=== PATIENT | male | born 1995 | race African-American/Black ===

== ENCOUNTER 2021-07-18 12:09 | Emergency (ER) | payer SELFPAY ==
[~2021-07-18] VITALS: Ht 175.3 cm; Wt 80.0 kg
[2021-07-18] MEDS ORDERED: ONDANSETRON HCL 4MG/2ML INJ IV STA (12:38)
[2021-07-18] MEDS ORDERED: MAGNESIUM/ALUMINUM HYDROXIDE/SIMETHICONE 30ML UDC PO ONE (12:45)
[2021-07-18] MEDS ORDERED: SODIUM CHLORIDE 0.9% 1,000 ML IV ONE (12:45)
[2021-07-18] MEDS ORDERED: KETOROLAC 15MG/ML VIAL IV ONE (13:30)
[2021-07-18 13:51] LABS: HEMATOCRIT. 47.6 % (42.0-52.0); HEMOGLOBIN. 15.7 g/dL (14.0-18.0); MEAN CORPUSCULAR HEMOGLOBIN 31.1 pg (28.0-32.0); MEAN CORPUSCULAR VOLUME 94.2 fL (80.0-94.0); MEAN PLATELET VOLUME 9.4 fl (7.4-10.4); PLATELET 249 x1000/uL (130-400); RED BLOOD CELL COUNT 5.05 mill/uL (4.7-6.1); RED CELL DISTRIBUTION WIDTH 13.5 % (11.6-14.6)
[2021-07-18 13:54] LABS: CHLORIDE 107 mEq/L (98-107)
[2021-07-18 14:24] LABS: PLATELET ESTIMATE NORMAL
[2021-07-18] MEDS ORDERED: ONDA4TAB5 MT (14:51)
[2021-07-18] MEDS ORDERED: ACETAMINOPHEN 325MG TABLET PO ONE (15:00)
[2021-07-18 15:03] VITALS: BP 112/70
== END 2021-07-18 15:14 | disposition home or self-care (01) ==
LOC: ER 12:32
DX: F11.23 Opioid dependence with withdrawal (principal); R11.2 Nausea with vomiting, unspecified; E86.0 Dehydration
CPT/HCPCS: 36415; 80053; 83690; 85025; 96361; 96374; 96375; 99284; J1885; J2405; J7030